=== PATIENT | male | born 1940 | race African-American/Black ===

== ENCOUNTER 2018-03-17 20:35 | Emergency (ER) | payer OTHER ==
[~2018-03-17] VITALS: Ht 165.1 cm; Wt 81.7 kg
--- NOTE | ~2018-03-17 | EKG ---
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
[2018-03-17] MEDS ORDERED: METFORMIN HCL500 MG PO (20:46)
[2018-03-17] MEDS ORDERED: HIGH BP MEDS (20:46)
[2018-03-17 21:44] LABS: HEMATOCRIT 40.6 % (42.0-52.0); MCH 28.3 pg (26.0-34.0); MCHC 34.5 g/dL (28.0-37.0); MCV 82.2 fL (80.0-100.0); PLATELET COUNT 201 thou/uL (150-400); RBC 4.94 mil/uL (4.50-6.00); RDW 13.5 % (10.5-14.5); WBC 11.3 thou/uL (4.0-11.0)
[2018-03-17 21:51] LABS: ANION GAP 10 mmol/L (7-16); BUN 13 mg/dL (7-18); CALCIUM 9.3 mg/dL (8.5-10.1); CHLORIDE 104 mmol/L (98-107); CO2 22 mmol/L (21-32); CREATININE 1.7 mg/dL (0.7-1.3); GLUCOSE 197 mg/dL (74-106); POTASSIUM 3.9 mmol/L (3.5-5.1); SODIUM 136 mmol/L (136-145)
[2018-03-17 21:59] LABS: TROPONIN-I <0.06 ng/mL (<0.06)
[2018-03-17 22:06] LABS: ABSOLUTE NEUTROPHILS 8.7 thou/uL (1.4-8.2)
[2018-03-17 22:07] LABS: ANISOCYTOSIS 1+; POLYCHROMASIA SLIGHT
[2018-03-17 22:25] LABS: URINE BILIRUBIN NEGATIVE (Negative); URINE BLOOD NEGATIVE (Negative); URINE CLARITY CLEAR; URINE COLOR YELLOW; URINE GLUCOSE-RANDOM* NEGATIVE (Negative); URINE KETONES NEGATIVE (Negative); URINE LEUKOCYTES-REFLEX NEGATIVE (Negative); URINE NITRITE-REFLEX NEGATIVE (Negative); URINE PROTEIN (DIPSTICK) NEGATIVE (Negative); URINE UROBILINOGEN 0.2 E.U./dl (0.2-1.0)
[2018-03-17] MEDS ORDERED: ZPAK PO (22:45)
[2018-03-17] MEDS ORDERED: TESSALON PERLE100 MG PO (22:45)
[2018-03-17 22:58] VITALS: BP 134/82
== END 2018-03-17 23:02 | disposition home or self-care (01) ==
LOC: ER 20:35
PROVIDERS: Physician Assistant
DX: R05 Cough (principal); R06.02 Shortness of breath; I10 Essential (primary) hypertension; E11.9 Type 2 diabetes mellitus without complications